=== PATIENT | female | born 1950 | race Caucasian/White ===

== ENCOUNTER 2018-11-07 18:46 | Emergency (ER) | payer MEDICARE, OTHER ==
[2018-11-07] MEDS ORDERED: AMOXICILLIN 250 MG CAPSULE PO STA (20:40)
[2018-11-07] MEDS ORDERED: BUFFERED LIDOCAINE 10 ML SYRINGE SUBQ STA (20:40)
--- NOTE | 2018-11-07 20:43 | ED Physician Documentation ---
PD HPI HEAD INJURY - Stated complaint Stated Complaint: GLF - FACE PX - Chief complaint Chief Complaint: Laceration - History obtained from History obtained from: Patient - History of Present Illness Mechanism of head injury: Fell (She tripped on a raised piece of concrete and landed face first on concrete. This was about 6 PM. Tetanus is up-to-date. There was no loss of consciousness. No headache. She complains mostly of nasal pain, epistaxis, and a lip laceration.) Review of Systems Constitutional: denies: Fever, Chills Eyes: denies: Loss of vision, Decreased vision, Photophobia Ears: denies: Loss of hearing, Ear pain Nose: reports: Epistaxis. denies: Rhinorrhea / runny nose, Congestion PD PAST MEDICAL HISTORY - Past Medical History Past Medical History: Yes Respiratory: Asthma - Past Surgical History Past Surgical History: Yes Ortho: Other /[employer]: Tubal ligation HEENT: Tonsil/Adenoidectomy - Present Medications Home Medications: Ambulatory Orders Medication Instructions Recorded Confirmed Hydrocodone/Acetaminophen 1 - 2 each PO Q6H PRN #14 tablet 11/07/18 [Hydrocodon-Acetaminophen 5-325] RX: Amoxicillin 500 mg PO TID #30 capsule 11/07/18 - Allergies Allergies/Adverse Reactions: Allergies Allergy/AdvReac Type Severity Reaction Status Date / Time magnesium Allergy Anaphylaxis Verified 11/07/18 18:56 - Social History Does the pt smoke?: Yes Smoking Status: Current every day smoker Does the pt drink ETOH?: Yes Does the pt have substance abuse?: No Substance Use and Type: Marijuana - Immunizations Immunizations are current?: Yes PD ED PE NORMAL - Vitals Vital signs reviewed: Yes - General General: Alert and oriented X 3, No acute distress - HEENT HEENT: PERRL, EOMI, Other (Tender and swollen over the bridge of the nose with ecchymosis starting. There is no other facial bony tenderness. She has a through and through laceration of the lower lip measuring 1.5 cm on the outside and 1 cm on the inside. There is no septal hematoma.) - Neck Neck: Supple, no meningeal sign, No bony TTP - Neuro Neuro: Alert and oriented X 3, field assessor 2-12 intact Eye Opening: Spontaneous Motor: Obeys Commands Verbal: Oriented GCS Score: 15 - Psych Psych: Normal mood, Normal affect Results - Vitals Vitals: Vital Signs - 24 hr 11/07/18 11/07/18 18:53 22:10 Temperature 37.0 C 36.2 C L Heart Rate 81 84 Respiratory 18 16 Rate Blood Pressure 124/65 154/86 H O2 Saturation 97 96 Oxygen O2 Source Room air - Rads (name of study) CT Face and Head Radiology: EMP read contemporaneously (Nasal fracture with questionable involvement of the right zygomatic arch and nasal septal deviation.) Procedures - Laceration (location) Lip/face Length in cm: 1.5 Wound type: Into muscle, Other (deep. through and through) Neurovascular status: Sensory intact Anesthesia: Lidocaine 1%, With bicarb Deep layer closure: Vicryl, size #-0 - enter number (5-0), # sutures - enter number (1) Skin layer closure: Prolene, Interrupted, Size #-0 - enter number (6-0), Sutures - enter # (5) Other: Tetanus UTD Complexity: Simple PD MEDICAL DECISION MAKING - ED course ED course: This is a 68-year-old woman who face planted on concrete tonight. Her injuries include a nasal fracture with possible zygoma fracture. She has a through and through lip laceration that was irrigated and sutured. Case discussed by phone with [facility] on-call Dr. Grossman, she needs close outpatient follow-up but not inpatient tonight. She plans to follow-up closer to home and she was given a copy of her CAT scan on CD. Departure - Departure Disposition: 01 Home, Self Care Clinical Impression: Nasal fracture, Zygoma fracture, Deviated septum, Facial laceration, Fall from slip, trip, or stumble Condition: Good Record reviewed to determine appropriate education?: Yes Instructions: ED Fx Nasal Conf W X Ray, ED Laceration Facial Sutr Tape Prescriptions: RX: Amoxicillin 500 mg PO TID #30 capsule Hydrocodone/Acetaminophen [Hydrocodon-Acetaminophen 5-325] 1 - 2 each PO Q6H PRN #14 tablet PRN Reason: pain Comments: As discussed you should follow-up with a facial surgeon. It looks like the closest one to you per the Internet is possible oral maxillofacial surgery. Their phone number is [phone]. I would call tomorrow for an appointment early next week. You should follow-up within the week definitely. Return for new or worsening symptoms. Do not drink or drive while taking narcotic pain medication. Note that many narcotic pain relievers also contain Tylenol/acetaminophen. Please ensure that your total dose of acetaminophen from all sources does not exceed 3 g (3000 mg) per day. You may get constipated while on this medication. Take a stool softener such as Colace twice a day while you are on it. Also add an [id number] laxative such as senna or MiraLAX on any day that you do not have a bowel movement. If you received a narcotic pain medication or sedative while in the emergency department, do not drive for the next 24 hours. Discharge Date/Time: 11/07/18 22:35
[2018-11-07] MEDS ORDERED: HYDROcod/ACET 5/325 Prepack 4 PO STA (21:25)
--- NOTE | 2018-11-07 21:39 | CT Report ---
Reason: facial/head inj Procedure Date: 11/07/2018 Accession Number: [id number] / [id number] Procedure: CT - HEAD WO CPT Code: FULL RESULT: EXAM: CT HEAD EXAM DATE: 11/07/2018 09:22 PM. CLINICAL HISTORY: Trauma, pain. COMPARISON: None. TECHNIQUE: Multiaxial CT images were obtained from the foramen magnum to the vertex. Reformats: Sagittal and coronal. IV contrast: None. In accordance with CT protocol optimization, one or more of the following dose reduction techniques were utilized for this exam: automated exposure control, adjustment of mA and/or KV based on patient size, or use of iterative reconstructive technique. FINDINGS: Parenchyma: No intraparenchymal hemorrhage. No evidence of mass, midline shift, or CT findings of acute infarction. Chow-white differentiation is distinct. Diffuse chronic microangiopathic white matter changes. Extraaxial Spaces: Normal for age. No subdural or epidural collections. Ventricles: The ventricles and cortical sulci are enlarged, consistent with age-related tissue loss. Sinuses and orbits: Imaged paranasal sinuses, orbits, and mastoids show no significant abnormality. Bones: Unremarkable. Other: None. IMPRESSION: Generalized age-related cortical atrophic changes without evidence of acute intracranial abnormality. RADIA
--- NOTE | 2018-11-07 21:48 | CT Report ---
Reason: facial/head inj Procedure Date: 11/07/2018 Accession Number: [id number] / [id number] Procedure: CT - MAXILLOFACIAL WO CPT Code: FULL RESULT: EXAM: CT MAXILLOFACIAL WITHOUT CONTRAST EXAM DATE: 11/07/2018 09:23 PM. CLINICAL HISTORY: Trauma, pain. COMPARISONS: None. TECHNIQUE: Thin-section axial images were acquired of the face without contrast. Post-processing: Coronal and sagittal reformats. Other: None. In accordance with CT protocol optimization, one or more of the following dose reduction techniques were utilized for this exam: automated exposure control, adjustment of mA and/or KV based on patient size, or use of iterative reconstructive technique. FINDINGS: Soft Tissue: The infratemporal fossa and parapharyngeal spaces are unremarkable. Mild soft tissue swelling over the nose. Orbits: Symmetric and unremarkable. Bones: Fracture of the right nasal ala with slight depression. Minimal depression of superior nasal spine to tip, but cortical discontinuity not clearly identified. Intact inferior nasal spine. Slight inward bowing of the right zygomatic arch with small defect, developmental versus fracture. Deviation of nasal septum about 5 mm to the right. Otherwise unremarkable. Temporomandibular Joints: The temporomandibular joints are symmetric and normally located. Sinuses: Normal. No mucosal thickening or fluid levels. Other: None. IMPRESSION: 1. Nasal fracture with questionable involvement of right zygomatic arch. 2. Deviation of nasal septum to the right. RADIA
[2018-11-07 22:11] VITALS: BP 154/86
== END 2018-11-07 22:35 | disposition home or self-care (01) ==
LOC: ED 18:46
DX: S02.2XXA Fracture of nasal bones, initial encounter for closed fracture (principal); S02.402A Zygomatic fracture, unspecified side, initial encounter for closed fracture; S01.511A Laceration without foreign body of lip, initial encounter; W18.09XA Striking against other object with subsequent fall, initial encounter; J34.2 Deviated nasal septum; F17.200 Nicotine dependence, unspecified, uncomplicated
CPT/HCPCS: 12011; 70450; 70486; 99283; A9270